=== PATIENT | female | born 1950 ===

== ENCOUNTER → 2023-06-06 | Outpatient (CLI) | payer MEDICARE, OTHER ==
[~2023-06-06] VITALS: Ht 167.6 cm; Wt 59.0 kg
== END | disposition home or self-care (01) ==
LOC: Rad HDHVI 12:30
PROVIDERS: ATTEND Internal Medicine Cardiovascular Disease
DX: C44.92 Squamous cell carcinoma of skin, unspecified (principal); I20.0 Unstable angina; R06.02 Shortness of breath; R00.2 Palpitations; E78.00 Pure hypercholesterolemia, unspecified; Z79.899 Other long term (current) drug therapy
CPT/HCPCS: 78452; 93017; 96374; A9500